=== PATIENT | female | born 1935 | race Caucasian/White ===

== ENCOUNTER 2024-11-24 13:52 | Inpatient (IN) | payer OTHER, SELFPAY ==
[2024-11-24] VITALS (9 sets, daily range): BP systolic 118–156; BP diastolic 63–87; BMI 23.6
[2024-11-24 10:43] LABS: % Basophils 0.4 % (0-2); % Eosinophils 0.5 % (0-6); % Immature Granulocytes 0.9 % (0-0.5); % Lymphocytes 8.6 % (20.5-51.1); % Monocytes 7.7 % (1.7-9.3); % Neutrophils 81.9 % (42.2-75.2); Absolute Basophils 0.1 10^3/uL (0-0.2); Absolute Eosinophils 0.1 10^3/uL (0-0.7); Absolute Immature Granulocytes 0.2 10^3/uL (0-0.05); Absolute Lymphocytes 1.8 10^3/uL (1.2-3.4); Absolute Monocytes 1.6 10^3/uL (0.1-0.6); Absolute Neutrophils 17.2 10^3/uL (1.4-6.5); Hematocrit 31.4 % (37.0-47.0); Hemoglobin 10.5 g/dL (12.0-16.0); Mean Corp Hgb Conc. 33.4 g/dL (33.0-37.0); Mean Corpuscular Hgb 29.2 pg (27.0-31.0); Mean Corpuscular Volume 87.2 fL (81.0-99.0); Mean Platelet Volume 8.1 fL (7.4-10.4); Nucleated Red Blood Cells % 0 %; Platelet Count 512 10^3/uL (130-400); Red Cell Dist. Width 14.1 % (11.5-14.5)
--- NOTE | 2024-11-24 10:45 | ED.GENMED ---
History of Present Illness
General
Chief Complaint: Weakness
Source: patient and family (daughter)
Time Seen by Provider: 11/24/24 10:30
History of Present Illness
History of Present Illness:
89-year-old female presents to the emergency room with her daughter from [facility] assisted living. Patient brought due to weakness which has been present for the past couple weeks but has been worsening in severity. Patient typically can
ambulate to the dining pappas without assistance. Over the past couple days however she has required significant assistance to accomplish this task. Today she really was not able to walk for any distance at all. Patient was evaluated at the medical
clinic at [facility] when the symptoms began. A urine culture was positive and she was started on Macrodantin. She seemed to 'rally' while taking the medication but has reverted and is now worse than previous. She had a fall 3 weeks ago for
which she was seen at [facility]. She did have imaging performed at that time which was unremarkable. She had a negative COVID and flu test 2 days ago. Patient denies any pain or area of discomfort. She was noted to be hypoxic upon
arrival with a pulse ox of 88%. Family notes she has had a dry cough for the past couple weeks.
Phy Exam
Physical Exam
Physical Exam:
General: Awake, Alert, Oriented to person and place. No acute distress.
Vitals: Hypoxic on room air
Head: Atraumatic
Eyes: Pupils equal, EOMI
Throat: Airway intact, no exudates
Neck: Trachea midline
Lungs: Few rhonchi right base
Heart: Regular rate, no murmurs
Abd: Soft, Nontender, No pulsatile mass
Neuro: Nonfocal
Skin: Warm, dry, no rash
Extremities: pulses equal b/l, no edema
Sepsis
Sepsis Screening
Sepsis Assessment: Sepsis
Sepsis Screen
Sepsis Screen: Sepsis
Date: 11/24/24
Time: 15:30
Course
Orders/Labs/Results
Orders:
Orders
11/24/24 10:25
Electrocardiogram (*1) Urgent
Reason for Study: Other
Other Reason for Exam: Possible Sepsis
O2 Therapy [RESP] Urgent
Titrate/Wean O2 to maintain O2 sat greater than (%): 93
Special Instructions: TO MAINTAIN CONTINUOUS O2 SATS > OR = 93%
11/24/24 10:26
EKG- Treatment ONCE
11/24/24 10:31
COVID-19 Antigen Urgent
Source: Nasal Swab
Complete Blood Count/With Diff Urgent
Comprehensive Metabolic Panel Urgent
Ferritin Urgent
Comment: ADD ON
Folate Urgent
Comment: ADD ON
Iron Urgent
Comment: ADD ON
Lactic Acid Q4H
Comment: ON ICE, CANCEL 2ND ORDER IF FIRST LACTIC ACID LEVEL <2
Total Iron Binding Urgent
Comment: ADD ON
Vitamin B12 Urgent
Comment: ADD ON
Influenza A+B Rapid Molecular Urgent
KRISTAL Source: Nasal Swab
Specimen Description:
11/24/24 10:44
Straight cath- Treatment ONCE
CR Chest - 2 Views Urgent
Comment:
Reason For Exam: weakness, hypoxia
11/24/24 11:15
Urinalysis Reflex To Culture Urgent
Date Specimen was Collected: 11/24/24
Time Specimen was Collected: 11:14
Urine Microscopic Reflex Cult Urgent
11/24/24 12:01
CefTRIAXone [Rocephin] 1,000 mg IV NOW STA
Doxycycline [Vibramycin] 100 mg PO NOW STA
11/24/24 13:01
Sputum Culture [Respiratory Culture/Gram Stain] Routine
KRISTAL Source: Sputum
Specimen Description:
11/24/24 13:37
Admit/Transfer Patient As Directed
Co-Sign Provider:
Level of Care: Inpatient admission
Assign to:: Telemetry
Physician / Group: meryl quintanilla
Diagnosis: sepsis 2/2 RLL pna, hypoxia 2/2 RLL pna, dementia known
Reason for Telemetry: Arrhythmia
Date to Stop Telemetry: 11/27/24
Time to Stop Telemetry: 11:00
Reason for Hospitalization: sepsis 2/2 RLL pna, hypoxia 2/2 RLL pna, dementia known
Expected length of stay greater than two midnights?: Yes
ELOS- Estimated Length of Stay in days: 4
I certify the patient meets the requirements for IP care: Yes
Code Status As Directed
Resuscitation Status: Do not resuscitate
Reached after discussion with pt or family/Healthcare POA: Yes
Based on pt advanced directive or healthcare POA form: Yes
Decision communicated with: Per daughter Helene HYATT
11/24/24 13:38
DNR Bracelet Application ONCE
11/24/24 13:41
PRN Pain Medication Management As Directed
May give lesser potent ordered pain med per pt: Yes
preference::
Protocol:: Medication orders for pain may be administered in a
manner that supports deferring to patient preference
when the pt is:
- Requesting an ordered lesser potent pain medication.
Least to most potent pain medications are defined
as: acetaminophen < NSAID < tramadol < opioids
(morphine, oxycodone, hydromorphone).
- Requesting a lesser dose of the same medication IF
ORDERED.
- Requesting a less intrusive route of administration
if both routes are prescribed by the provider (PO <
IV).
11/24/24 14:19
Blood Culture Q30M
KRISTAL Source: Blood/Venous
Specimen Description:
Blood Culture Q30M
KRISTAL Source: Blood/Venous
Specimen Description:
11/27/24 11:00
DC Protocol for Telemetry ONCE
Abnormal Lab Results
11/24/24 11/24/24
10:31 11:15
WBC 21.0 H 10^3/uL
(4.8-10.8)
RBC 3.60 L 10^6/uL
(4.20-5.40)
Hgb 10.5 L g/dL
(12.0-16.0)
Hct 31.4 L %
(37.0-47.0)
Plt Count 512 H 10^3/uL
(130-400)
Abs Immat Gran (auto) 0.2 H 10^3/uL
(0-0.05)
Absolute Neuts (auto) 17.2 H 10^3/uL
(1.4-6.5)
Absolute Monos (auto) 1.6 H 10^3/uL
(0.1-0.6)
Immature Gran % 0.9 H %
(0-0.5)
Neutrophils % 81.9 H %
(42.2-75.2)
Lymphocytes % 8.6 L %
(20.5-51.1)
Sodium 134 L mmol/L
(135-145)
Glucose 119 H mg/dl
(70-99)
Iron 23 L ug/dl
(37-170)
TIBC 178 L ug/dl
(265-497)
% Saturation 12 L %
(20-50)
Alkaline Phosphatase 148 H U/L
(38-126)
Total Protein 5.8 L g/dl
(6.3-8.2)
Albumin 3.1 L g/dl
(3.5-5.0)
Urine Bacteria (Reflex) Few A
(Negative)
Urine Albumin (Reflex) 2+ A
(Neg - Trace)
11/24/24 10:31
11/24/24 10:31
Vital Signs
Initial and Last Documented VS:
Initial Vital Signs
BP
140/69
11/24/24 10:00
Last Documented Vital Signs
Temp Pulse Resp BP Pulse Ox
101 F H 93 19 140/69 93
11/24/24 11:15 11/24/24 10:45 11/24/24 10:45 11/24/24 10:02 11/24/24 10:45
MDM/Problems Addressed
Differential Diagnosis Includes:
Pneumonia, urinary tract infection, COVID, flu
MDM/Problems Addressed:
Patient presents with profound weakness, cough and suspicion that she has a urinary tract infection that has failed outpatient management. Upon arrival patient noted to be hypoxic on room air. Labs show a white count of 21,000. Chemistries are
not particularly abnormal. Her urinalysis is not consistent with a urinary tract infection with negative nitrates and leukocyte esterase. However her chest x-ray is consistent with a right lower lobe infiltrate. Patient given antibiotics for
community-acquired pneumonia. She will require hospitalization for supplemental oxygen and careful monitoring given her age and comorbidities.
*Radiology
Radiology exam reviewed: preliminary read by ED provider (Right middle lobe infiltrate)
*Pulse Oximetry
Patient hypoxic: yes
*EKG
Interpreted by ED Provider?: Yes
Comparison EKG: no comparison EKG present
Heart Rate: 97
Rate: normal
Rhythm: sinus and PAC's
[place]: normal axis
Interval: normal interval
QRS Pattern: normal QRS
Ischemia: non-specific ST changes
*Rn On Site Interpretation
Rate: normal
Interpretation: normal
Rhythm: sinus
*Critical Care Note
Total Time (30-74mins, 75-104mins- exclusive of procedures): Not Applicable
Patient Management
Social determinants of health affecting care: Living situation and Strong social support
ED Attending Note
-
Portions of this chart may have been created with voice recognition software.� Occasional wrong word or��sound alike� substitutions may have occurred due to the inherent limitations of voice recognition software.
Discharge Plan
Departure
Patient Disposition: Admit
Date of Disposition: 11/24/24
Time of Disposition: 12:37
Admit to: Med/Surg
Presentation/result/management discussed w/ accepting MD/DO: Hospitalist
Condition: Fair
Discharge Problem:
Pneumonia
Interventions
Interventions:
*Risk Screen - Suicide Last Done: 11/24/24 10:02
*General Assessment Last Done: 11/24/24 10:02
*Neglect/Abuse Screening Last Done: 11/24/24 10:02
*ED- Fall Risk Assessment Last Done: 11/24/24 10:02
*ED COVID-19 Vaccine History Last Done: 11/24/24 10:02
ED- Cardiac Assessment Last Done: 11/24/24 10:02
ED- Neurological Assessment Last Done: 11/24/24 10:02
ED- Pulmonary Assessment Last Done: 11/24/24 10:02
[2024-11-24 10:55] LABS: Lactic Acid 0.8 mmol/L (0.7-2.0)
[2024-11-24 10:59] LABS: ALT (SGPT) 34 U/L (0-35); AST (SGOT) 30 U/L (14-36); Albumin 3.1 g/dl (3.5-5.0); Alkaline Phosphatase 148 U/L (38-126); Blood Urea Nitrogen 16 mg/dl (7-17); Calcium 8.8 mg/dl (8.4-10.2); Carbon Dioxide 25 mmol/L (22-30); Chloride 101 mmol/L (98-107); Estimated Creatinine Clearance 55 ml/min; Glucose 119 mg/dl (70-99); Potassium 4.4 mmol/L (3.5-5.1); Sodium 134 mmol/L (135-145); Total Bilirubin 0.6 mg/dl (0.2-1.3); Total Protein 5.8 g/dl (6.3-8.2); eGFR > 60.00
[2024-11-24 11:07] LABS: COVID-19 Antigen Negative (Negative)
[2024-11-24 11:42] LABS: Urine Albumin 2+ (Neg - Trace); Urine Bilirubin Negative (Negative); Urine Character Clear (Clear); Urine Color Yellow; Urine Glucose Negative (Negative); Urine Ketone Negative (Negative); Urine Leukocyte Negative (Negative); Urine Nitrite Negative (Negative); Urine Occult Blood Negative (Negative); Urine Urobilinogen Negative (Neg - 1+); Urine pH 6.5 (5.0-9.0)
[2024-11-24] MEDS: VIBRAMYCIN 100 MG PO ×2 (12:11→20:53)
[2024-11-24] MEDS: ROCEPHIN 1000 MG IV (12:11)
[2024-11-24 12:57] LABS: Urine Bacteria Few (Negative); Urine Mucus Few; Urine Red Blood Cell 0-2 /HPF (0-2)
--- NOTE | 2024-11-24 13:02 | CM ---
CM met with pt and pedro pablor/Helene bedside
Pt resides alone at [facility]
Pt very N[place] and hearing aides at home
She ambulates with a rollator and is fairly indep with personal care tasks
Pt oriented to family, quite forget at times, doesn't recognize her apartment
She has a private duty [employer] 4 hours x 7 days weekly
[facility] fills pill box and [employer] provides reminders
Pt has no home O2 at baseline
Pt ambulates indep to dining room each night and is social
PCP- Werner Spencer
Rx- [facility]
Pt has 6 children, all involved
Helene Castellanos/marilyn medical POA
Pedro Pablor/Amy is financial POA
Pt will benefit therapy evals once appropriate
Watch for O2 needs
Discharge Disposition- anticipate home with VN and CAMILLA privatre duty, watch for O2 needs and possible higher level
--- NOTE | 2024-11-24 13:03 | HPS.HSE ---
Addendum entered and electronically signed by Sapphire Brown DO 11/24/24 14:42:
I have seen and examined the patient. I have discussed the patient at length with Imani, and agree with her history and physical and assessment and plan of care as per below. The patient is currently on 2 L oxygen for hypoxia, oxygen 88% on room
air. She does not typically wear home oxygen. She is been having increased weakness and falls at home secondary to a recent urinary tract infection for which she has been on Macrobid. Of note she also has daily alcohol use 2 drinks per day of
wine.
Vital signs reviewed. Hemodynamically stable.
Lungs positive for bibasilar Rales.
Cardiovascular regular rate and rhythm no murmurs rubs or gallops
Abdomen is soft nontender normoactive bowel sounds
Extremities no clubbing sinus no edema
WBC 21.0 hemoglobin 10.5 sodium 134
Chest x-ray shows an area of increased density in the right middle lobe which could represent pneumonia versus mass
Urine analysis shows few bacteria 2+ albumin otherwise negative this is on Macrobid
# Concern is for community-acquired pneumonia of the right middle lobe, less likely mass however would need to follow this to resolution with repeat imaging after she is treated for the infection.
- Continue IV antibiotics-IV Rocephin and oral Doxy
- Continue oxygen therapy with weaning protocol
# Chronic daily alcohol use, 2 glasses
-Alcohol withdrawal protocol and monitor closely
Additional assessment and plan of care as per below
DNR
Original Note:
Family Physician
-
Family Physician: Werner Spencer
Chief Complaint
-
Increased weakness, cough, hypoxia
History of Present Illness
89-year-old female from [facility] assisted living who has had weakness over the past couple weeks however has been worsening in severity. She can typically ambulate to the dining pappas without assistance however over the past several days she
needed significant assistance using a rollator according to staff members.She had a fall 3 weeks ago and was seen at [facility] with benign workup. Due to her weakness she was seen by her PCP and had a urine culture sent that was
positive on 11/10/2024. Her daughter states they were called on 11/13/2024 with positive blood cultures she had 1 dose of Zithromax however it was changed to Macrobid. The daughter is unsure of the bacteria it was growing. She was started on
Macrodantin staff reports she seemed to improve for about 2 days however then reverted and now is worse than previous. . Her family reports a dry cough for the past couple weeks she was hypoxic upon arrival at 88% on room air. She does have a dry
cough for the past week and chronic urinary frequency/urgency per her daughter Helene at bedside. The patient is pleasantly demented she is oriented to first and last name, daughter's name, place of living. She denies headache, sore throat, fever,
chills, chest pain, palpitations, shortness of breath, abdominal pain, nausea, vomiting, diarrhea, urinary symptoms.
She has past medical history dementia, chronic ambulatory dysfunction with history of multiple falls, HTN, HLD, CKD 3, IBS, hypothyroidism, anxiety, depression, insomnia, varicose veins status post vein stripping 1982, macular degeneration, [place] has
hearing aids but lost them.
Medical History
Past Medical History
Past Medical History: Reports Other
Additional Past Medical History:
Dementia-moderate
Chronic ambulatory dysfunction with history of multiple falls
Alcohol abuse drinks 2 glasses Chardonnay daily
HTN
HLD
CKD 3
IBS
Hypothyroidism
Anxiety
Depression
Insomnia
Varicose veins status post vein stripping 1982
Macular degeneration
[place]
Past Surgical History: Reports Other
Additional Past Surgical History:
Breast biopsy 1970
Vein stripping 1982 due to varicose veins
Stapedectomy 2000
Dupuytren's contracture release 2015
Social History
Tobacco: Non-smoker
Alcohol: Daily
Drug: None
Personal:
Living: Alone ([facility] independent however family has aides they check in)
Employment: Retired
Family History
Family History: Not pertinent
Allergies / Home Medications
Allergies reflects when Allergies were last updated in [employer].
Home Medications with original date entered in [employer]
Allergy/Medication List:
Allergies
Allergy/AdvReac Type Severity Reaction Status Date / Time
clindamycin [From Cleocin] Allergy Mild Rash Verified 11/24/24 10:01
Home Medications
acetaminophen 650 mg tablet,extended release 1,300 mg PO DAILYPRN PRN mild pain 11/24/24
aspirin 81 mg chewable tablet 81 mg PO QPM 11/24/24
calcium 500 mg (as carbonate)-vitamin D3 10 mcg (400 unit) tablet (Calcium 500 + D) 1 tab PO QPM 11/24/24
duloxetine 60 mg capsule,delayed release (Cymbalta) 60 mg PO QPM 11/24/24
guaifenesin 600 mg tablet, extended release 12 hr (Mucinex) 600 mg PO BIDPRN PRN cough 11/24/24
levothyroxine 50 mcg tablet (Synthroid) 50 mcg PO QPM 11/24/24
losartan 100 mg tablet 100 mg PO QPM 11/24/24
omeprazole 20 mg tablet,delayed release 20 mg PO HS 11/24/24
simvastatin 20 mg tablet (Zocor) 20 mg PO QPM 11/24/24
vitamins A,C,M-aazv-hryvgt 2,148 mcg-113 mg-45 mg-17.4 mg tablet (PreserVision AREDS) 2 tab PO QPM 11/24/24
Review of Systems
-
History Source: Patient and Family (Daughter Helene at bedside)
A 12 point ROS was completed and negative except as noted: Yes
Constitutional: Reports Fatigue; Denies Fever or Chills
EENT: Denies Sore Throat or Runny Nose
Respiratory: Reports Cough (Nonproductive x 1 week); Denies Trouble Breathing
Cardiac: Denies Chest Pain, Diaphoresis, Palpitations or Syncope
Abdomen/GI: Denies Abdominal Pain, Nausea, Vomiting, Diarrhea, Constipated, Bloody Stools or Black Stools
: Reports Frequency (Chronic), Incontinence (Chronic) and Urgency (Chronic urgency and frequency per daughter); Denies Dysuria
Musculoskeletal: Denies Joint Pain or Edema
Skin: Denies Itching or Rash
Neurological: Reports Weakness (Reported generalized with walking); Denies Dizzy or Headache
Endocrine: Reports No Symptoms
Hematologic/Lymphatic: Reports No Symptoms
Psych: Reports Calm
Physical Exam
Vital Signs
Vital Signs
Temp Pulse Resp BP Pulse Ox
101 F H 93 19 140/69 93
11/24/24 11:15 11/24/24 10:45 11/24/24 10:45 11/24/24 10:02 11/24/24 10:45
Physical Exam
General: Comfortable and Conversant; No Pain, Fever or Chills
HEENT: NormoCephalic, Anicteric, PERRLA, [place] Conjunctivae and No Ptosis
Respiratory: Clear and Rhonchi (Right lower lung base small endobronchial); No Wheezes or Rales
Cardiac: S1/S2 and Regular Rhythm; No Murmur, Rub, Gallop or Peripheral Edema
GI: Soft, Non Tender, Non Distended, Normal Bowel Sounds and No Hepatosplenomegaly
Genito-urinary: Deferred by me
Musculoskeletal: No Clubbing, No Cyanosis and No Edema
Skin: Warm and Dry; No Rash
Neuro: Awake, Alert, Oriented (Oriented to first and last name, daughter, place of living) and No Sensory Deficits; No Slurred Speech, Facial Droop or Tremors
Psych: Calm
Laboratory Results
-
11/24/24 10:31
11/24/24 10:31
Laboratory Results
Lactic Acid 0.8 mmol/L (0.7-2.0) 11/24/24 10:31
Total Bilirubin 0.6 mg/dl (0.2-1.3) 11/24/24 10:31
AST 30 U/L (14-36) 11/24/24 10:31
ALT 34 U/L (0-35) 11/24/24 10:31
Alkaline Phosphatase 148 U/L (38-126) H 11/24/24 10:31
Data Reviewed
-
CT Scan: Report Reviewed by me
Lab Data: Labs Reviewed by me
Impression/Plan
-
Impression/plan:
Admit to telemetry
#Sepsis secondary to right middle lobe pneumonia
#Acute hypoxic respiratory insufficiency secondary to right middle lobe pneumonia
WBC 21 with left shift, temp 101F, HR 93, 140/69
88% RA, 93% 2L NC
COVID/influenza negative
-Blood cultures x 2, sputum culture
- Tylenol as needed
- IV Rocephin, doxycycline
-Incentive spirometry
-PT/OT/case management consult
- Follow CBC, BMP
CXR: Round area of increased density in the right middle lobe could represent pneumonia versus a mass
EKG: Sinus rhythm with PACs left anterior fascicular block 97 bpm, QTc 487 MS no previous EKGs available
#Daily alcohol use/abuse
Patient drinks 2 glasses of Chardonnay daily-family has spoken with [employer] financial assistance specialist who has a max limit of 2 drinks he can serve the mother
MSAs screen with protocol
-IV thiamine, IV folate
-Check B12 folate
#Normocytic anemia
Hgb 10.5 prior baseline 12.3 on 03/05/2022
#Dementia
- Oriented to first and last name, daughter, place of living [facility] independent
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
-Fall precaution
# HTN�benign
BP 140/69
- Continue losartan 100 mg every afternoon with hold parameters
# HLD
- Continue Zocor 20 mg every afternoon
CKD 3 B
-Creat 0.6, CrCl 55
- Follow BMP
#IBS hx
Hypothyroidism
- Continue Synthroid 50 mcg p.o. every afternoon
#Anxiety
#Depression
- Continue Cymbalta 60 mg every afternoon
#Insomnia
#Osteoarthritis
- Continue Tylenol 650 mg p.o. every 4 hours as needed pain
- Continue calcium carbonate plus D3
Other PMH:
Varicose veins status post vein stripping 1982
Macular degeneration
[place] [place]-patient lost hearing aids
DVT prophylaxis
Subcu Lovenox
DNR per daughter Helene at bedside
[2024-11-24 14:55] LABS: Iron 23 ug/dl (37-170)
[2024-11-24 15:05] LABS: Percent Saturation 12 % (20-50); Total Iron Binding Capacity 178 ug/dl (265-497)
[2024-11-24 16:37] LABS: Folate 5.4 ng/ml (2.76-20); Vitamin B12 560 pg/ml (239-931)
--- NOTE | 2024-11-24 16:42 | PTCARENOTE ---
pt presents from ED via stretcher. pt is AAO*2, Vss, 2L o2. pt with dry cough, denies any pain. daughter at the bedside updated. pt is oriented to the room. Bed alarm plugged in. call gaston within the reach. plan of care ongoing.
[2024-11-24 16:44] LABS: GGTP 66 U/L (12-43); Magnesium 2.2 mg/dl (1.6-2.3); Phosphorus 3.6 mg/dl (2.5-4.5)
[2024-11-24 16:45] LABS: Alcohol None Detected
[2024-11-24 16:50] LABS: B-Hydroxybutyrate 0.07 mmol/L (0.02-0.27); INR 1.12; PT 14.7 Sec (11.4-14.6)
[2024-11-24 16:51] LABS: APTT 39.7 Sec (23.4-35.0)
[2024-11-24] MEDS: OCUVITE SOFTGEL 2 CAP PO (17:10)
[2024-11-24] MEDS: CYMBALTA DELAYED RELEASE 60 MG PO (17:10)
[2024-11-24] MEDS: SYNTHROID 50 MCG PO (17:10)
[2024-11-24] MEDS: OSCAL 500 + D 500 MG PO (17:10)
[2024-11-24] MEDS: COZAAR 100 MG PO (17:10)
[2024-11-24] MEDS: LOW STRENGTH ASPIRIN 81 MG PO (17:11)
[2024-11-24] MEDS: LIPITOR 10 MG PO (17:11)
[2024-11-24] MEDS: LOVENOX 40 MG SC (17:11)
[2024-11-24 18:00] LABS: Amphetamines Negative (Negative); Barbiturates Negative (Negative); Benzodiazepines Negative (Negative); Buprenorphine Negative (Negative); Cocaine Negative (Negative); Marijuana Negative (Negative); Methadone Negative (Negative); Methamphetamines Negative (Negative); Opiates Negative (Negative); Phencyclidine Negative (Negative); Tricyclic Antidepressants Negative (Negative)
[2024-11-24] MEDS: PROTONIX 40 MG PO (20:53)
[2024-11-24] MEDS: THIAMINE INJECTION 200 MG IV (20:53)
[2024-11-24] MEDS: TYLENOL 650 MG PO (23:59)
[2024-11-25] VITALS (8 sets, daily range): BP systolic 119–165; BP diastolic 58–78; PULSE 84–95; O2SAT 97
[2024-11-25] MEDS: MUCINEX 600 MG PO (03:38)
[2024-11-25 08:07] LABS: ALT (SGPT) 38 U/L (0-35); AST (SGOT) 36 U/L (14-36); Albumin 2.8 g/dl (3.5-5.0); Alkaline Phosphatase 149 U/L (38-126); Blood Urea Nitrogen 17 mg/dl (7-17); Calcium 8.9 mg/dl (8.4-10.2); Carbon Dioxide 24 mmol/L (22-30); Chloride 101 mmol/L (98-107); Estimated Creatinine Clearance 47 ml/min; Glucose 106 mg/dl (70-99); Potassium 4.2 mmol/L (3.5-5.1); Sodium 132 mmol/L (135-145); Total Bilirubin 0.6 mg/dl (0.2-1.3); Total Protein 5.4 g/dl (6.3-8.2); eGFR > 60.00
[2024-11-25 08:25] LABS: % Basophils 0.4 % (0-2); % Eosinophils 1.8 % (0-6); % Immature Granulocytes 1.2 % (0-0.5); % Lymphocytes 14.2 % (20.5-51.1); % Monocytes 8.8 % (1.7-9.3); % Neutrophils 73.6 % (42.2-75.2); Absolute Basophils 0.1 10^3/uL (0-0.2); Absolute Eosinophils 0.3 10^3/uL (0-0.7); Absolute Immature Granulocytes 0.2 10^3/uL (0-0.05); Absolute Lymphocytes 2.3 10^3/uL (1.2-3.4); Absolute Monocytes 1.4 10^3/uL (0.1-0.6); Absolute Neutrophils 11.9 10^3/uL (1.4-6.5); Hematocrit 28.8 % (37.0-47.0); Hemoglobin 9.7 g/dL (12.0-16.0); Mean Corp Hgb Conc. 33.7 g/dL (33.0-37.0); Mean Corpuscular Hgb 29.4 pg (27.0-31.0); Mean Corpuscular Volume 87.3 fL (81.0-99.0); Mean Platelet Volume 8.6 fL (7.4-10.4); Nucleated Red Blood Cells % 0 %; Platelet Count 491 10^3/uL (130-400); Red Cell Dist. Width 14.1 % (11.5-14.5); White Blood Cell Count 16.2 10^3/uL (4.8-10.8)
[2024-11-25] MEDS: THIAMINE INJECTION 200 MG IV ×2 (08:29→19:21)
[2024-11-25] MEDS: FOLVITE 1 MG PO (08:29)
[2024-11-25] MEDS: VIBRAMYCIN 100 MG PO ×2 (08:29→19:20)
[2024-11-25] MEDS: ROCEPHIN 1000 MG IV (11:42)
[2024-11-25] MEDS: STERILE WATER FOR INJECTION 10 ML IV (11:43)
--- NOTE | 2024-11-25 11:54 | W.PN.HOSP.TC ---
Today's Communication/Plan
-
With monitor vitals
See plan
Follow cultures
Follow fever curve
Continue antibiotics
Add Mucinex
Monitor leukocytosis
Assessment / Plan
Assessment / Plan
General: Comfortable and Conversant; No Pain, Fever or Chills
HEENT: NormoCephalic, Anicteric
Respiratory: Clear and Rhonchi (Right lower lung base small endobronchial)
Cardiac: S1/S2 and Regular Rhythm
GI: Soft, Non Tender, Non Distended, Normal Bowel Sounds
Musculoskeletal: No Edema
Skin: Warm and Dry; No Rash
Neuro: Awake, Alert, Oriented
Psych: Calm
Sepsis secondary to right middle lobe pneumonia
#Acute hypoxic respiratory insufficiency secondary to right middle lobe pneumonia
COVID/influenza negative
-Blood cultures x 2, sputum culture
- Tylenol as needed
- IV Rocephin, doxycycline
-Incentive spirometry
CXR: Round area of increased density in the right middle lobe could represent pneumonia versus a mass
EKG: Sinus rhythm with PACs left anterior fascicular block 97 bpm, QTc 487 MS no previous EKGs available
#Daily alcohol use/abuse
Patient drinks 2 glasses of Chardonnay daily-family has spoken with [employer] manager of case who has a max limit of 2 drinks he can serve the mother
MSAs screen with protocol
- thiamine, folat
#Normocytic anemia
#Dementia
- Oriented to first and last name, daughter, place of living [email or web address] independent
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
-Fall precaution
# HTN�benign
- Continue losartan 100 mg every afternoon with hold parameters
# HLD
- Continue Zocor 20 mg every afternoon
CKD 3 B
- Follow BMP
#IBS hx
Hypothyroidism
- Continue Synthroid 50 mcg p.o. every afternoon
#Anxiety
#Depression
- Continue Cymbalta 60 mg every afternoon
#Insomnia
#Osteoarthritis
- Continue Tylenol 650 mg p.o. every 4 hours as needed pain
- Continue calcium carbonate plus D3
Other PMH:
Varicose veins status post vein stripping 1982
Macular degeneration
[place]-patient lost hearing aids
DVT prophylaxis
Subcu Lovenox
DNR per daughter Helene on admission
Anticipated Discharge: > 48 hours
Subjective/Interval History
-
Date of Service: November 25, 2024
denies pain
Objective Data
-
Labs:
Laboratory Results
11/25/24
06:40
WBC 16.2 H
Hgb 9.7 L
Hct 28.8 L
Plt Count 491 H
Sodium 132 L
Potassium 4.2
Chloride 101
Carbon Dioxide 24
BUN 17
Creatinine 0.7
Glucose 106 H
Calcium 8.9
Total Bilirubin 0.6
AST 36
ALT 38 H
Alkaline Phosphatase 149 H
Vital Signs:
Vital Signs
Temp Pulse Resp BP Pulse Ox
97.7 F 86 18 121/64 97
11/25/24 11:25 11/25/24 11:25 11/25/24 11:25 11/25/24 11:25 11/25/24 11:25
I&O
11/24/24 11/25/24 11/26/24
06:59 06:59 06:59
Intake Total 0 / 0
Output Total 200 / 200
Balance 0 / 0 -200 / -200
[2024-11-25] MEDS: MUCINEX 1200 MG PO ×2 (12:08→19:21)
--- NOTE | 2024-11-25 12:12 | CM ---
CM following re: discharge planning.
Reviewed pt's chart, met with pt.
PT and OT evaluations noted - SNF level of care recommended. Pt is aware, expressed her disappointment feelings and after explanation of SNF level of care befits, pt expressed her agreement and pt is requested [facility]. A referral to [facility] made.
CM consulted for substance abuse resources. Pt stated having 2 glasses of wine daily is 'absolutely normal'. Declined meeting with MARY and declined any alcohol related treatment resources.
D/C plan: [facility] when medically stable.
[2024-11-25] MEDS: LOVENOX 40 MG SC (17:10)
[2024-11-25] MEDS: LIPITOR 10 MG PO (17:12)
[2024-11-25] MEDS: LOW STRENGTH ASPIRIN 81 MG PO (17:12)
[2024-11-25] MEDS: OCUVITE SOFTGEL 2 CAP PO (17:12)
[2024-11-25] MEDS: CYMBALTA DELAYED RELEASE 60 MG PO (17:12)
[2024-11-25] MEDS: OSCAL 500 + D 500 MG PO (17:12)
[2024-11-25] MEDS: SYNTHROID 50 MCG PO (17:12)
[2024-11-25] MEDS: COZAAR 100 MG PO (17:16)
[2024-11-25] MEDS: PROTONIX 40 MG PO (19:20)
[2024-11-26 03:11] VITALS: BP 125/53
[2024-11-26 07:36] VITALS: BP 129/62
[2024-11-26 07:58] LABS: % Basophils 0.6 % (0-2); % Eosinophils 1.9 % (0-6); % Immature Granulocytes 1.3 % (0-0.5); % Lymphocytes 15.8 % (20.5-51.1); % Monocytes 8.5 % (1.7-9.3); % Neutrophils 71.9 % (42.2-75.2); Absolute Basophils 0.1 10^3/uL (0-0.2); Absolute Eosinophils 0.3 10^3/uL (0-0.7); Absolute Immature Granulocytes 0.2 10^3/uL (0-0.05); Absolute Lymphocytes 2.3 10^3/uL (1.2-3.4); Absolute Monocytes 1.2 10^3/uL (0.1-0.6); Absolute Neutrophils 10.4 10^3/uL (1.4-6.5); Hematocrit 28.3 % (37.0-47.0); Hemoglobin 9.4 g/dL (12.0-16.0); Mean Corp Hgb Conc. 33.2 g/dL (33.0-37.0); Mean Corpuscular Hgb 29.2 pg (27.0-31.0); Mean Corpuscular Volume 87.9 fL (81.0-99.0); Mean Platelet Volume 8.2 fL (7.4-10.4); Nucleated Red Blood Cells % 0 %; Platelet Count 514 10^3/uL (130-400); Red Blood Cell Count 3.22 10^6/uL (4.20-5.40); White Blood Cell Count 14.5 10^3/uL (4.8-10.8)
[2024-11-26 08:44] LABS: ALT (SGPT) 48 U/L (0-35); AST (SGOT) 48 U/L (14-36); Albumin 2.8 g/dl (3.5-5.0); Alkaline Phosphatase 176 U/L (38-126); Blood Urea Nitrogen 15 mg/dl (7-17); Carbon Dioxide 23 mmol/L (22-30); Chloride 102 mmol/L (98-107); Estimated Creatinine Clearance 47 ml/min; Glucose 97 mg/dl (70-99); Potassium 4.3 mmol/L (3.5-5.1); Sodium 136 mmol/L (135-145); Total Bilirubin 0.5 mg/dl (0.2-1.3); Total Protein 5.5 g/dl (6.3-8.2); eGFR > 60.00
[2024-11-26] MEDS: MUCINEX 1200 MG PO ×2 (09:29→20:57)
[2024-11-26] MEDS: FOLVITE 1 MG PO (09:29)
[2024-11-26] MEDS: VIBRAMYCIN 100 MG PO ×2 (09:30→20:57)
[2024-11-26] MEDS: THIAMINE INJECTION 200 MG IV ×2 (09:30→20:56)
[2024-11-26] MEDS: FLUSH (NSS) 1 FLUSH IV ×2 (09:30→12:42)
[2024-11-26 11:05] VITALS: BP 116/60
--- NOTE | 2024-11-26 11:21 | CM ---
Addendum entered by Artis Duarte 11/26/24 14:12:
According to MD pt is medically stable to be discharged today.
CM spoke to [facility] nutrition director and she confirmed they do not have a vbed available today and will not have till somehow next week. per nutrition director she spoke to pt's daughter and she is aware of the above.
CM met with pt and her daughter at bedside. Pt's daughter requested following SNFs: [facility] SNF, [facility] SNF or [facility] SNF. A referral to above SNFs made. Awaiting for determination.
D/C plan: preferred SNF.
CM will follow to assist pt with discharge to a preferred SNF.
Original Note:
CM following re: discharge planning.
Reviewed pt's chart, met with pt and spoke to pt's daughter over the phone to update on discharge plan progress.
PT and OT continue recommending SNF level of care. Both pt and her daughter requested [facility].
A referral to [facility] made yesterday, spoke to [facility] liaison today and she confirmed that pt is accepted for admission to [facility] when medically stable.
D/C plan: [facility] when medically stable.
CM will follow to assist pt with discharge to [facility].
--- NOTE | 2024-11-26 11:42 | W.PN.HOSP.TC ---
Today's Communication/Plan
-
monitor vitals
see plan
cw abx
dc planning
discussed with daughter
monitor leukocytosis
monitor LFT's
Assessment / Plan
Assessment / Plan
General: Comfortable and Conversant; No Pain, Fever or Chills
HEENT: NormoCephalic, Anicteric
Respiratory: Clear and Rhonchi (Right lower lung base small endobronchial)
Cardiac: S1/S2 and Regular Rhythm
GI: Soft, Non Tender, Non Distended, Normal Bowel Sounds
Musculoskeletal: No Edema
Skin: Warm and Dry; No Rash
Neuro: Awake, Alert, Oriented
Psych: Calm
Sepsis secondary to right middle lobe pneumonia
#Acute hypoxic respiratory insufficiency secondary to right middle lobe pneumonia
COVID/influenza negative
-bcx NGTD
- Tylenol as needed
- IV Rocephin, doxycycline
-Incentive spirometry
CXR: Round area of increased density in the right middle lobe could represent pneumonia versus a mass
EKG: Sinus rhythm with PACs left anterior fascicular block 97 bpm, QTc 487 MS no previous EKGs available
#Daily alcohol use/abuse
Patient drinks 2 glasses of Chardonnay daily-family has spoken with [employer] tennis professional who has a max limit of 2 drinks he can serve the mother
MSAs screen with protocol
- thiamine, folate
#Normocytic anemia
Elevated LFTs
Monitor
#Dementia
- Oriented to first and last name, daughter, place of living [place] independent
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
-Fall precaution
# HTN�benign
- Continue losartan 100 mg every afternoon with hold parameters
# HLD
- Continue Zocor 20 mg every afternoon
CKD 3 B
- Follow BMP
#IBS hx
Hypothyroidism
- Continue Synthroid 50 mcg p.o. every afternoon
#Anxiety
#Depression
- Continue Cymbalta 60 mg every afternoon
#Insomnia
#Osteoarthritis
- Continue Tylenol 650 mg p.o. every 4 hours as needed pain
- Continue calcium carbonate plus D3
Other PMH:
Varicose veins status post vein stripping 1982
Macular degeneration
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
DVT prophylaxis
Subcu Lovenox
DNR per daughter Helene on admission
Anticipated Discharge: Today
Subjective/Interval History
-
Date of Service: November 26, 2024
Denies pain
Objective Data
-
Labs:
Laboratory Results
11/26/24
07:10
WBC 14.5 H
Hgb 9.4 L
Hct 28.3 L
Plt Count 514 H
Sodium 136
Potassium 4.3
Chloride 102
Carbon Dioxide 23
BUN 15
Creatinine 0.7
Glucose 97
Calcium 9.0
Total Bilirubin 0.5
AST 48 H
ALT 48 H
Alkaline Phosphatase 176 H
Vital Signs:
Vital Signs
Temp Pulse Resp BP Pulse Ox
98.4 F 79 18 129/62 94
11/26/24 07:36 11/26/24 07:36 11/26/24 07:36 11/26/24 07:36 11/26/24 09:21
I&O
11/25/24 11/26/24 11/27/24
06:59 06:59 06:59
Intake Total 0 / 0 480 / 480
Output Total 200 / 200
Balance 0 / 0 280 / 280
[2024-11-26] MEDS: STERILE WATER FOR INJECTION 10 ML IV (12:42)
[2024-11-26] MEDS: ROCEPHIN 1000 MG IV (12:42)
[2024-11-26] MEDS: TYLENOL 650 MG PO (13:43)
[2024-11-26 15:56] VITALS: BP 139/68
--- NOTE | 2024-11-26 16:20 | PTCARENOTE ---
Pt awake and alert, oriented to self/year/birthdate; occ to place/'hospital'. Pt [place]. Pleasant and cooperative; forgetful. [place]SE[place]; OOB to chair/BSC with assist x1, occ uses walker. Pt unsteady w/OOB activity. VSS. Telemetry:NSR. On room air-
pulse ox 97%, no SOB noted. Abd soft, rounded, iram PO, appetite fair. Incont small amts/voids small amts on BSC. Resting in bed at present. Will continue to monitor.
[2024-11-26] MEDS: CYMBALTA DELAYED RELEASE 60 MG PO (17:47)
[2024-11-26] MEDS: OCUVITE SOFTGEL 2 CAP PO (17:47)
[2024-11-26] MEDS: LOW STRENGTH ASPIRIN 81 MG PO (17:48)
[2024-11-26] MEDS: COZAAR 100 MG PO (17:48)
[2024-11-26] MEDS: OSCAL 500 + D 500 MG PO (17:48)
[2024-11-26] MEDS: LIPITOR 10 MG PO (17:48)
[2024-11-26] MEDS: SYNTHROID 50 MCG PO (17:48)
[2024-11-26] MEDS: LOVENOX 40 MG SC (17:49)
[2024-11-26 19:37] VITALS: BP 138/61
[2024-11-26] MEDS: PROTONIX 40 MG PO (20:57)
[2024-11-26 23:40] VITALS: BP 145/60
[2024-11-27 03:29] VITALS: BP 136/67
[2024-11-27] MEDS: TYLENOL 650 MG PO (04:29)
[2024-11-27] MEDS: ROBITUSSIN DM 5 ML PO (05:23)
[2024-11-27 06:52] LABS: % Basophils 0.5 % (0-2); % Eosinophils 2.8 % (0-6); % Immature Granulocytes 1.2 % (0-0.5); % Lymphocytes 11.5 % (20.5-51.1); % Monocytes 7.6 % (1.7-9.3); % Neutrophils 76.4 % (42.2-75.2); Absolute Basophils 0.1 10^3/uL (0-0.2); Absolute Eosinophils 0.5 10^3/uL (0-0.7); Absolute Immature Granulocytes 0.2 10^3/uL (0-0.05); Absolute Lymphocytes 1.9 10^3/uL (1.2-3.4); Absolute Monocytes 1.2 10^3/uL (0.1-0.6); Absolute Neutrophils 12.4 10^3/uL (1.4-6.5); Hematocrit 26.4 % (37.0-47.0); Hemoglobin 9.1 g/dL (12.0-16.0); Mean Corp Hgb Conc. 34.5 g/dL (33.0-37.0); Mean Corpuscular Hgb 29.7 pg (27.0-31.0); Mean Corpuscular Volume 86.3 fL (81.0-99.0); Mean Platelet Volume 8.3 fL (7.4-10.4); Nucleated Red Blood Cells % 0 %; Platelet Count 519 10^3/uL (130-400); Red Blood Cell Count 3.06 10^6/uL (4.20-5.40); Red Cell Dist. Width 14.3 % (11.5-14.5); White Blood Cell Count 16.3 10^3/uL (4.8-10.8)
[2024-11-27 07:31] LABS: ALT (SGPT) 58 U/L (0-35); AST (SGOT) 66 U/L (14-36); Albumin 2.8 g/dl (3.5-5.0); Alkaline Phosphatase 164 U/L (38-126); Blood Urea Nitrogen 20 mg/dl (7-17); Carbon Dioxide 23 mmol/L (22-30); Chloride 101 mmol/L (98-107); Estimated Creatinine Clearance 47 ml/min; Glucose 146 mg/dl (70-99); Potassium 3.9 mmol/L (3.5-5.1); Sodium 134 mmol/L (135-145); Total Bilirubin 0.4 mg/dl (0.2-1.3); Total Protein 5.3 g/dl (6.3-8.2); eGFR > 60.00
[2024-11-27 07:45] VITALS: BP 132/67
[2024-11-27] MEDS: MUCINEX 1200 MG PO ×2 (09:07→21:16)
[2024-11-27] MEDS: VIBRAMYCIN 100 MG PO ×2 (09:07→21:17)
[2024-11-27] MEDS: THIAMINE INJECTION 200 MG IV (09:08)
[2024-11-27] MEDS: FOLVITE 1 MG PO (09:09)
--- NOTE | 2024-11-27 09:49 | CM ---
Addendum entered by Artis Duarte 11/27/24 13:50:
Per RODNEY, pt is approved for SNF level of care at [facility] from today till 12/03/24, Auth is: [id number].
According to pt will not be discharged today, pt needs to be seen by ST.
Per [facility] director of event sales, pt will be accepted when medically stable.
Original Note:
CM following re: discharge planning.
Reviewed pt's chart,met with pt and spoke to pt's daughter Helene over the phone to update on discharge plan progress.
According to pt is medically stable to be discharged today.
Pt's daughter has been informed that [facility] and [facility] denied a referral. [facility] offered a bed. pt's daughter expressed her agreement with [facility].
CM spoke maegan [facility] director of event sales and she confirmed that they do have a bed available today and pt will be accepted when an auth is obtained.
[facility]
Accepting Physician: Lily Pickett .
CHER initiated an auth with [employer], spoke to telecommunications sales representative Lucía, pending ref#: [id number] with a request for discharge today.
Awaiting for an auth.
D/C plan: [facility] when an auth available.
CM will follow to assist pt with discharge to [facility].
--- NOTE | 2024-11-27 11:17 | W.PN.HOSP.TC ---
Today's Communication/Plan
-
Monitor vital signs see plan
Speech evaluation
Continue antibiotics
Discharge planning
Assessment / Plan
Assessment / Plan
General: Comfortable and Conversant; No Pain, Fever or Chills
HEENT: NormoCephalic, Anicteric
Respiratory: Clear and Rhonchi (Right lower lung base small endobronchial)
Cardiac: S1/S2 and Regular Rhythm
GI: Soft, Non Tender, Non Distended, Normal Bowel Sounds
Musculoskeletal: No Edema
Skin: Warm and Dry; No Rash
Neuro: Awake, Alert, Oriented
Psych: Calm
Sepsis secondary to right middle lobe pneumonia
#Acute hypoxic respiratory insufficiency secondary to right middle lobe pneumonia
COVID/influenza negative
-bcx NGTD
- Tylenol as needed
- IV Rocephin, doxycycline
-Incentive spirometry
Has some cough with eating today, speech to evaluate especially given elevated white count
CXR: Round area of increased density in the right middle lobe could represent pneumonia versus a mass
EKG: Sinus rhythm with PACs left anterior fascicular block 97 bpm, QTc 487 MS no previous EKGs available
#Daily alcohol use/abuse
Patient drinks 2 glasses of Chardonnay daily-family has spoken with [employer] insurance claims specialist who has a max limit of 2 drinks he can serve the mother
MSAs screen with protocol
- thiamine, folate
Mild hyponatremia
Monitor
#Normocytic anemia
Elevated LFTs
Monitor; denies abdominal pain
#Dementia
- Oriented to first and last name, daughter, place of living [place] independent
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
-Fall precaution
# HTN�benign
- Continue losartan 100 mg every afternoon with hold parameters
# HLD
- Continue Zocor 20 mg every afternoon
CKD 3 B
- Follow BMP
#IBS hx
Hypothyroidism
- Continue Synthroid 50 mcg p.o. every afternoon
#Anxiety
#Depression
- Continue Cymbalta 60 mg every afternoon
#Insomnia
#Osteoarthritis
- Continue Tylenol 650 mg p.o. every 4 hours as needed pain
- Continue calcium carbonate plus D3
Other PMH:
Varicose veins status post vein stripping 1982
Macular degeneration
TAT[place]-patient lost hearing aids
DVT prophylaxis
Subcu Lovenox
DNR per daughter Helene on admission
Anticipated Discharge: Within 24 hours
Subjective/Interval History
-
Date of Service: November 27, 2024
Denies pain
Objective Data
-
Labs:
Laboratory Results
11/27/24
06:23
WBC 16.3 H
Hgb 9.1 L
Hct 26.4 L
Plt Count 519 H
Sodium 134 L
Potassium 3.9
Chloride 101
Carbon Dioxide 23
BUN 20 H
Creatinine 0.7
Glucose 146 H
Calcium 9.0
Total Bilirubin 0.4
AST 66 H
ALT 58 H
Alkaline Phosphatase 164 H
Vital Signs:
Vital Signs
Temp Pulse Resp BP Pulse Ox
98.1 F 87 16 132/67 93
11/27/24 07:45 11/27/24 07:45 11/27/24 07:45 11/27/24 07:45 11/27/24 07:45
I&O
11/26/24 11/27/24 11/28/24
06:59 06:59 06:59
Intake Total 480 / 480 1400 / 1400
Output Total 200 / 200
Balance 280 / 280 1400 / 1400
[2024-11-27 11:25] VITALS: BP 131/62
[2024-11-27] MEDS: ROCEPHIN 1000 MG IV (12:14)
[2024-11-27] MEDS: STERILE WATER FOR INJECTION 10 ML IV (12:15)
--- NOTE | 2024-11-27 12:55 | PTOTSP ---
Dysphagia Evaluation
Patient with acute on chronic dysphagia risk factors (i.e., admitted w/ RML PNA; dementia, alcohol abuse) and concern for signs of aspiration w/ PO (i.e., possible coughing w/ PO intake per staff when independently eating w/o supervision; no s/s
during CSE w/ supervision.) Video swallow recommended to objectively assess swallow.
Recommend:
1. Regular, Thin
2. Medications: as best tolerated
3. Supervision/assist as needed
4. Oral care 3x daily
5. Video swallow study
[2024-11-27] MEDS: LIPITOR 10 MG PO (17:40)
[2024-11-27] MEDS: OCUVITE SOFTGEL 2 CAP PO (17:40)
[2024-11-27] MEDS: COZAAR 100 MG PO (17:40)
[2024-11-27] MEDS: CYMBALTA DELAYED RELEASE 60 MG PO (17:40)
[2024-11-27] MEDS: LOW STRENGTH ASPIRIN 81 MG PO (17:40)
[2024-11-27] MEDS: SYNTHROID 50 MCG PO (17:41)
[2024-11-27] MEDS: OSCAL 500 + D 500 MG PO (17:41)
[2024-11-27] MEDS: LOVENOX 40 MG SC (17:41)
[2024-11-27 19:00] VITALS: BP 139/64
[2024-11-27] MEDS: PROTONIX 40 MG PO (21:17)
[2024-11-27] MEDS: VITAMIN B1 100 MG PO (21:17)
[2024-11-27 23:00] VITALS: BP 147/66
[2024-11-28] MEDS: ROBITUSSIN DM 5 ML PO ×2 (02:16→09:42)
[2024-11-28 03:00] VITALS: BP 149/76
[2024-11-28 07:22] LABS: % Basophils 0.6 % (0-2); % Eosinophils 2.7 % (0-6); % Immature Granulocytes 1.8 % (0-0.5); % Monocytes 7.7 % (1.7-9.3); % Neutrophils 73.2 % (42.2-75.2); Absolute Basophils 0.1 10^3/uL (0-0.2); Absolute Eosinophils 0.4 10^3/uL (0-0.7); Absolute Immature Granulocytes 0.3 10^3/uL (0-0.05); Absolute Lymphocytes 2.1 10^3/uL (1.2-3.4); Absolute Monocytes 1.2 10^3/uL (0.1-0.6); Absolute Neutrophils 10.9 10^3/uL (1.4-6.5); Hematocrit 28.6 % (37.0-47.0); Hemoglobin 9.6 g/dL (12.0-16.0); Mean Corp Hgb Conc. 33.6 g/dL (33.0-37.0); Mean Corpuscular Hgb 29.2 pg (27.0-31.0); Mean Corpuscular Volume 86.9 fL (81.0-99.0); Mean Platelet Volume 8.3 fL (7.4-10.4); Nucleated Red Blood Cells % 0 %; Platelet Count 581 10^3/uL (130-400); Red Blood Cell Count 3.29 10^6/uL (4.20-5.40); Red Cell Dist. Width 14.1 % (11.5-14.5); White Blood Cell Count 14.9 10^3/uL (4.8-10.8)
[2024-11-28 07:45] VITALS: BP 141/69
[2024-11-28 07:46] LABS: ALT (SGPT) 63 U/L (0-35); AST (SGOT) 54 U/L (14-36); Albumin 3.1 g/dl (3.5-5.0); Alkaline Phosphatase 167 U/L (38-126); Blood Urea Nitrogen 14 mg/dl (7-17); Calcium 9.4 mg/dl (8.4-10.2); Carbon Dioxide 25 mmol/L (22-30); Chloride 102 mmol/L (98-107); Estimated Creatinine Clearance 47 ml/min; Glucose 104 mg/dl (70-99); Potassium 4.2 mmol/L (3.5-5.1); Sodium 137 mmol/L (135-145); Total Bilirubin 0.5 mg/dl (0.2-1.3); Total Protein 5.8 g/dl (6.3-8.2); eGFR > 60.00
[2024-11-28] MEDS: MUCINEX 1200 MG PO (09:15)
[2024-11-28] MEDS: FOLVITE 1 MG PO (09:16)
[2024-11-28] MEDS: VIBRAMYCIN 100 MG PO (09:16)
[2024-11-28] MEDS: VITAMIN B1 100 MG PO (09:16)
--- NOTE | 2024-11-28 11:13 | W.PN.HOSP.TC ---
Today's Communication/Plan
-
Monitor vitals
See plan
Switch to oral antibiotics
Discharge today to SNF
Time of discharge 37 minutes
Assessment / Plan
Assessment / Plan
General: Comfortable and Conversant; No Pain, Fever or Chills
HEENT: NormoCephalic, Anicteric
Respiratory: Clear and Rhonchi (Right lower lung base small endobronchial)
Cardiac: S1/S2 and Regular Rhythm
GI: Soft, Non Tender, Non Distended, Normal Bowel Sounds
Musculoskeletal: No Edema
Skin: Warm and Dry; No Rash
Neuro: Awake, Alert, Oriented
Psych: Calm
Sepsis secondary to right middle lobe pneumonia
#Acute hypoxic respiratory insufficiency secondary to right middle lobe pneumonia
COVID/influenza negative
-bcx NGTD
- Tylenol as needed
Switch to p.o. antibiotics and discharge
-Incentive spirometry
Evaluated by speech, ordered VSE initially however daughter does not want any intervention and accept patient as comfort feeds.
CXR: Round area of increased density in the right middle lobe could represent pneumonia versus a mass
EKG: Sinus rhythm with PACs left anterior fascicular block 97 bpm, QTc 487 MS no previous EKGs available
#Daily alcohol use/abuse
Patient drinks 2 glasses of Chardonnay daily-family has spoken with [employer] supplemental nurse who has a max limit of 2 drinks he can serve the mother
MSAs screen with protocol
- thiamine, folate
Mild hyponatremia
Monitor
#Normocytic anemia
Elevated LFTs
Monitor; denies abdominal pain
#Dementia
- Oriented to first and last name, daughter, place of living [place] independent
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
-Fall precaution
# HTN�benign
- Continue losartan 100 mg every afternoon with hold parameters
# HLD
- Continue Zocor 20 mg every afternoon
CKD 3 B
- Follow BMP
#IBS hx
Hypothyroidism
- Continue Synthroid 50 mcg p.o. every afternoon
#Anxiety
#Depression
- Continue Cymbalta 60 mg every afternoon
#Insomnia
#Osteoarthritis
- Continue Tylenol 650 mg p.o. every 4 hours as needed pain
- Continue calcium carbonate plus D3
Other PMH:
Varicose veins status post vein stripping 1982
Macular degeneration
QAWALANGIN-patient lost hearing aids
DVT prophylaxis
Subcu Lovenox
DNR per daughter Helene on admission
Anticipated Discharge: Today
Subjective/Interval History
-
Date of Service: November 28, 2024
denies pain
Objective Data
-
Labs:
Laboratory Results
11/28/24
06:49
WBC 14.9 H
Hgb 9.6 L
Hct 28.6 L
Plt Count 581 H
Sodium 137
Potassium 4.2
Chloride 102
Carbon Dioxide 25
BUN 14
Creatinine 0.7
Glucose 104 H
Calcium 9.4
Total Bilirubin 0.5
AST 54 H
ALT 63 H
Alkaline Phosphatase 167 H
Vital Signs:
Vital Signs
Temp Pulse Resp BP Pulse Ox
98.6 F 85 16 141/69 93
11/28/24 07:45 11/28/24 07:45 11/28/24 07:45 11/28/24 07:45 11/28/24 07:45
I&O
11/27/24 11/28/24 11/29/24
06:59 06:59 06:59
Intake Total 1400 / 1400 420 / 420 360 / 360
Balance 1400 / 1400 420 / 420 360 / 360
[2024-11-28 11:29] VITALS: BP 124/59
--- NOTE | 2024-11-28 11:34 | W.DCSUMMARY ---
Discharge Summary
Discharge Data
Date of Admission: 11/24/24
Date of Discharge: 11/28/24
-
Pending Results: No
Hospital Course
89-year-old female with past medical history of dementia, chronic ambulatory dysfunction, hypertension, hyperlipidemia, CKD, IBS, hypothyroidism, anxiety, depression, also arthritis, varicose veins, macular degeneration came to the hospital with
sepsis secondary to right middle lobe pneumonia. Patient also had acute hypoxic respiratory insufficiency initially due to pneumonia however over time her oxygen continue to improve and she was on room air prior to discharge. She was initially
required IV antibiotic which were later transitioned to p.o. antibiotics prior to discharge. Patient was also evaluated by speech therapy was recommended video swallow study however patient daughter refused to VSE and accepted patient for comfort
feeds given her age. Patient was eval by physical therapy who recommended SNF. Once patient symptoms continue to improve, she was then discharged to rehab with instructions to follow-up with all her physicians outpatient.
Discharge Plan
-
Patient Disposition: Home (Routine Discharge)
Discharge Diagnosis/Procedures: Sepsis secondary to right middle lobe pneumonia
Acute hypoxic respiratory insufficiency secondary to right middle lobe pneumonia
Dysphagia
Diet: As tolerated
Activity: With assistance and As tolerated
Driving Restrictions: As prior to admission
Bathing Restrictions: None
Blood Work: CBC and CMP next week
Others Tests: Repeat chest x-ray in 4 weeks
Activity Restrictions/Additional Instructions:
Continue with cefdinir and doxycycline for 5 more days
Referrals:
Werner Spencer MD [Family Provider] - in less than 1 week
Prescriptions:
New
doxycycline hyclate 100 mg Capsule
100 mg PO Q12 Qty: 0 0RF
thiamine mononitrate (vit B1) 100 mg Tablet
100 mg PO BID Qty: 0 0RF
guaifenesin 600 mg Tablet Extended Release 12hr
1,200 mg PO Q12 Qty: 0 0RF
cefdinir 300 mg capsule
300 mg PO BID Qty: 10 0RF
folic acid 1 mg Tablet
1 mg PO DAILY Qty: 0 0RF
Continued
acetaminophen 650 mg Tablet Extended Release
1,300 mg PO DAILYPRN PRN (Reason: mild pain)
levothyroxine [Synthroid] 50 mcg Tablet
50 mcg PO QPM
simvastatin [Zocor] 20 mg Tablet
20 mg PO QPM
aspirin 81 mg Tablet,Chewable
81 mg PO QPM
losartan 100 mg Tablet
100 mg PO QPM
duloxetine [Cymbalta] 60 mg Capsule,Delayed Release(Dr/Ec)
60 mg PO QPM
calcium carbonate-vitamin D3 [Calcium 500 + D] 500 mg-10 mcg (400 unit) Tablet
1 tab PO QPM
PreserVision AREDS 2,148 mcg-113 mg-45 mg-17.4mg Tablet
2 tab PO QPM
omeprazole 20 mg Tablet,Delayed Release (Dr/Ec)
20 mg PO HS Qty: 0 0RF
Discontinued
guaifenesin [Mucinex] 600 mg Tablet Extended Release 12hr
600 mg PO BIDPRN PRN (Reason: cough)
Discharge Orders:
Discharge Patient (As Directed); Ordered 11/28/24
Ordered By: Venkat Costello
Discharge Date and Time
Discharge Date/Time: 11/28/24 15:16
Print Language: POLISH
--- NOTE | 2024-11-28 11:37 | CM ---
CM following re: discharge planning.
Reviewed pt's chart,met with pt and spoke to pt's daughter Helene over the phone to update on discharge plan progress.
Discharge order noted. Both pt and her daughter helene are aware, expressed their agreement. IMM form reviewed yesterday, placed on chart, pt has a copy.
CM spoke to [facility] director of search engine marketing and she confirmed that pt is accepted for admission today.
Per [employer], pt is approved for SNF level of care at [facility] from today till 12/03/24, Auth is: [id number].
[facility] has auth information.
to arrange ambulance, BLS. PMBNC completed, left with .
[facility] nursing report: [phone]
Discharge instructions fax: [phone]
D/C plan: [facility] today.
== END 2024-11-28 15:16 | DRG 871 ==
LOC: 4 EAST ACU 13:52
PROVIDERS: Clinical Nurse Specialist Family Health; ADMITTING PHYSICIAN Internal Medicine; ATTENDING PHYSICIAN Internal Medicine; EMERGENCY PHYSICIAN Emergency Medicine; FAMILY PHYSICIAN Internal Medicine
DX: A41.89 Other specified sepsis (principal); J18.9 Pneumonia, unspecified organism; F03.B3 Unspecified dementia, moderate, with mood disturbance; F03.B4 Unspecified dementia, moderate, with anxiety; F03.B18 Unspecified dementia, moderate, with other behavioral disturbance; E87.1 Hypo-osmolality and hyponatremia; R09.02 Hypoxemia; I12.9 Hypertensive chronic kidney disease with stage 1 through stage 4 chronic kidney disease, or unspecified chronic kidney disease; N18.30 Chronic kidney disease, stage 3 unspecified; E78.5 Hyperlipidemia, unspecified; F32.A Depression, unspecified; R26.2 Difficulty in walking, not elsewhere classified; F10.10 Alcohol abuse, uncomplicated; E03.9 Hypothyroidism, unspecified; D64.9 Anemia, unspecified; M19.90 Unspecified osteoarthritis, unspecified site; K58.9 Irritable bowel syndrome, unspecified; I83.90 Asymptomatic varicose veins of unspecified lower extremity; R13.10 Dysphagia, unspecified; G47.00 Insomnia, unspecified; H35.30 Unspecified macular degeneration; Z66 Do not resuscitate; Z60.2 Problems related to living alone; Z11.52 Encounter for screening for COVID-19; Z87.440 Personal history of urinary (tract) infections; Z91.81 History of falling; Z88.1 Allergy status to other antibiotic agents; Z79.82 Long term (current) use of aspirin; Z79.890 Hormone replacement therapy
CPT/HCPCS: 51701; 71046; 80053; 80306; 81003; 81015; 82010; 82077; 82607; 82728; 82746; 82977; 83540; 83550; 83605; 83735; 84100; 85025; 85610; 85730; 87040; 87502; 87811; 92610; 93005; 96374; 97116; 97163; 97167; 97530; 97535; 99285

== ENCOUNTER → 2024-12-01 12:59 | Outpatient (REF) | payer OTHER, SELFPAY ==
[2024-12-01 14:44] LABS: % Basophils 0.6 % (0-2); % Eosinophils 3.7 % (0-6); % Immature Granulocytes 1.8 % (0-0.5); % Lymphocytes 17.3 % (20.5-51.1); % Monocytes 7.1 % (1.7-9.3); % Neutrophils 69.5 % (42.2-75.2); Absolute Basophils 0.1 10^3/uL (0-0.2); Absolute Eosinophils 0.5 10^3/uL (0-0.7); Absolute Immature Granulocytes 0.3 10^3/uL (0-0.05); Absolute Lymphocytes 2.5 10^3/uL (1.2-3.4); Absolute Neutrophils 9.9 10^3/uL (1.4-6.5); Hematocrit 28.9 % (37.0-47.0); Hemoglobin 9.4 g/dL (12.0-16.0); Mean Corp Hgb Conc. 32.5 g/dL (33.0-37.0); Mean Corpuscular Volume 89.2 fL (81.0-99.0); Mean Platelet Volume 8.5 fL (7.4-10.4); Nucleated Red Blood Cells % 0 %; Platelet Count 606 10^3/uL (130-400); Red Blood Cell Count 3.24 10^6/uL (4.20-5.40); Red Cell Dist. Width 14.4 % (11.5-14.5); White Blood Cell Count 14.2 10^3/uL (4.8-10.8)
[2024-12-01 14:49] LABS: Blood Urea Nitrogen 15 mg/dl (7-17); Carbon Dioxide 25 mmol/L (22-30); Chloride 102 mmol/L (98-107); Glucose 88 mg/dl (70-99); Potassium 4.6 mmol/L (3.5-5.1); Sodium 137 mmol/L (135-145); eGFR > 60.00
== END ==
LOC: OLABP 12:59
PROVIDERS: ATTENDING PHYSICIAN Family Medicine
DX: I10 Essential (primary) hypertension (principal); N18.30 Chronic kidney disease, stage 3 unspecified; F03.B0 Unspecified dementia, moderate, without behavioral disturbance, psychotic disturbance, mood disturbance, and anxiety; J96.01 Acute respiratory failure with hypoxia; J18.1 Lobar pneumonia, unspecified organism; A41.9 Sepsis, unspecified organism
CPT/HCPCS: 36415; 80048; 85025

== ENCOUNTER → 2024-12-05 11:13 | Outpatient (REF) | payer OTHER, SELFPAY ==
[2024-12-05 11:54] LABS: % Basophils 0.4 % (0-2); % Immature Granulocytes 1.6 % (0-0.5); % Monocytes 6.8 % (1.7-9.3); % Neutrophils 67.2 % (42.2-75.2); Absolute Basophils 0.1 10^3/uL (0-0.2); Absolute Eosinophils 0.7 10^3/uL (0-0.7); Absolute Immature Granulocytes 0.2 10^3/uL (0-0.05); Absolute Lymphocytes 2.2 10^3/uL (1.2-3.4); Absolute Monocytes 0.8 10^3/uL (0.1-0.6); Absolute Neutrophils 8.2 10^3/uL (1.4-6.5); Hematocrit 31.9 % (37.0-47.0); Hemoglobin 10.3 g/dL (12.0-16.0); Mean Corp Hgb Conc. 32.3 g/dL (33.0-37.0); Mean Corpuscular Hgb 28.9 pg (27.0-31.0); Mean Corpuscular Volume 89.4 fL (81.0-99.0); Mean Platelet Volume 8.7 fL (7.4-10.4); Nucleated Red Blood Cells % 0 %; Platelet Count 599 10^3/uL (130-400); Red Blood Cell Count 3.57 10^6/uL (4.20-5.40); Red Cell Dist. Width 14.5 % (11.5-14.5); White Blood Cell Count 12.3 10^3/uL (4.8-10.8)
[2024-12-05 13:01] LABS: Blood Urea Nitrogen 18 mg/dl (7-17); Calcium 9.2 mg/dl (8.4-10.2); Carbon Dioxide 22 mmol/L (22-30); Chloride 101 mmol/L (98-107); Glucose 98 mg/dl (70-99); Sodium 137 mmol/L (135-145); eGFR > 60.00
== END ==
LOC: OLABP 11:13
PROVIDERS: ATTENDING PHYSICIAN Family Medicine
DX: I10 Essential (primary) hypertension (principal); N18.30 Chronic kidney disease, stage 3 unspecified; F03.B0 Unspecified dementia, moderate, without behavioral disturbance, psychotic disturbance, mood disturbance, and anxiety; J96.01 Acute respiratory failure with hypoxia; J18.1 Lobar pneumonia, unspecified organism; A41.9 Sepsis, unspecified organism
CPT/HCPCS: 36415; 80048; 85025

== ENCOUNTER → 2024-12-08 12:24 | Outpatient (REF) | payer OTHER, SELFPAY ==
[2024-12-08 12:59] LABS: % Basophils 0.7 % (0-2); % Eosinophils 5.6 % (0-6); % Immature Granulocytes 0.7 % (0-0.5); % Lymphocytes 26.7 % (20.5-51.1); % Monocytes 5.6 % (1.7-9.3); % Neutrophils 60.7 % (42.2-75.2); Absolute Basophils 0.1 10^3/uL (0-0.2); Absolute Eosinophils 0.6 10^3/uL (0-0.7); Absolute Immature Granulocytes 0.1 10^3/uL (0-0.05); Absolute Lymphocytes 2.7 10^3/uL (1.2-3.4); Absolute Monocytes 0.6 10^3/uL (0.1-0.6); Absolute Neutrophils 6.2 10^3/uL (1.4-6.5); Hematocrit 27.7 % (37.0-47.0); Mean Corp Hgb Conc. 32.5 g/dL (33.0-37.0); Mean Corpuscular Volume 89.4 fL (81.0-99.0); Mean Platelet Volume 8.9 fL (7.4-10.4); Nucleated Red Blood Cells % 0 %; Platelet Count 481 10^3/uL (130-400); Red Cell Dist. Width 14.6 % (11.5-14.5); White Blood Cell Count 10.1 10^3/uL (4.8-10.8)
== END ==
LOC: OLABP 12:24
PROVIDERS: ATTENDING PHYSICIAN Family Medicine
DX: I10 Essential (primary) hypertension (principal); N18.30 Chronic kidney disease, stage 3 unspecified; F03.B0 Unspecified dementia, moderate, without behavioral disturbance, psychotic disturbance, mood disturbance, and anxiety; J96.01 Acute respiratory failure with hypoxia; J18.1 Lobar pneumonia, unspecified organism; A41.9 Sepsis, unspecified organism
CPT/HCPCS: 85025